=== PATIENT | female | born 1960 | race Native Hawaiian/Other Pacific Islander ===

== ENCOUNTER 2020-04-03 09:49 | Outpatient (CLI) | payer BC, OTHER | END 2020-04-03 21:48 | disposition home or self-care (01) | LOC: LAB 09:49 | DX: R05 Cough (principal); R06.02 Shortness of breath | CPT/HCPCS: 87635; G2023; U0003 ==

== ENCOUNTER 2020-11-12 09:25 | Outpatient (CLI) | payer BC, OTHER | END 2020-11-12 21:58 | disposition home or self-care (01) | LOC: INF 09:25 | PROVIDERS: ATTEND Internal Medicine | DX: Z23 Encounter for immunization (principal) | CPT/HCPCS: 96372 ==

== ENCOUNTER 2020-12-04 09:17 | Outpatient (CLI) | payer BC, OTHER | END 2020-12-04 21:03 | disposition home or self-care (01) | LOC: INF | PROVIDERS: ATTEND Internal Medicine | DX: Z23 Encounter for immunization (principal) | CPT/HCPCS: 96372 ==

== ENCOUNTER 2021-05-01 08:54 | Outpatient (CLI) | payer BC | END 2021-05-01 19:02 | disposition home or self-care (01) | LOC: RESP 08:54 | PROVIDERS: ATTEND Nurse Practitioner Family | DX: J32.9 Chronic sinusitis, unspecified (principal); E66.9 Obesity, unspecified; E78.5 Hyperlipidemia, unspecified; R06.02 Shortness of breath; R00.2 Palpitations; Z13.31 Encounter for screening for depression; F41.1 Generalized anxiety disorder; Z68.35 Body mass index [BMI] 35.0-35.9, adult | CPT/HCPCS: 93005 ==

== ENCOUNTER 2021-07-28 07:39 | Outpatient (CLI) | payer BC | END 2021-07-28 18:54 | disposition home or self-care (01) | LOC: NM 07:39 | PROVIDERS: ATTEND Specialist | DX: R07.89 Other chest pain (principal); R06.02 Shortness of breath; R06.00 Dyspnea, unspecified | CPT/HCPCS: A9500 ==

== ENCOUNTER → 2021-08-03 | Outpatient (CLI) | payer BC | LOC: RESP 08:44 | PROVIDERS: ATTEND Specialist | DX: R00.2 Palpitations (principal) | CPT/HCPCS: 93225 ==

== ENCOUNTER 2021-08-27 11:10 | Outpatient (CLI) | payer BC, OTHER | END 2021-08-27 14:00 | disposition home or self-care (01) | LOC: INF 11:10 | PROVIDERS: ATTEND Internal Medicine | DX: Z23 Encounter for immunization (principal) | CPT/HCPCS: 0004A ==

== ENCOUNTER 2022-02-15 10:43 | Outpatient (CLI) | payer BC | END 2022-02-15 19:49 | disposition home or self-care (01) | LOC: RAD 10:43 | PROVIDERS: ATTEND Nurse Practitioner Family | DX: E78.5 Hyperlipidemia, unspecified (principal); E11.9 Type 2 diabetes mellitus without complications; E66.9 Obesity, unspecified; M25.50 Pain in unspecified joint; I10 Essential (primary) hypertension; M25.561 Pain in right knee ==

== ENCOUNTER 2022-02-19 09:13 | Outpatient (CLI) | payer BC | END 2022-02-19 21:15 | disposition home or self-care (01) | LOC: US 09:13 | PROVIDERS: ATTEND Nurse Practitioner Family | DX: R10.31 Right lower quadrant pain (principal); E78.5 Hyperlipidemia, unspecified; E11.9 Type 2 diabetes mellitus without complications; E66.9 Obesity, unspecified; M25.50 Pain in unspecified joint; I10 Essential (primary) hypertension; M25.561 Pain in right knee ==

== ENCOUNTER 2022-04-20 08:37 | Outpatient (CLI) | payer BC | END 2022-04-20 18:59 | disposition home or self-care (01) | LOC: US 08:37 | PROVIDERS: ATTEND Nurse Practitioner Family | DX: R10.2 Pelvic and perineal pain (principal) ==

== ENCOUNTER 2022-11-03 09:41 | Outpatient (CLI) | payer BC | END 2022-11-03 19:39 | disposition home or self-care (01) | LOC: CT 09:41 | PROVIDERS: ATTEND Nurse Practitioner Family | DX: Z09 Encounter for follow-up examination after completed treatment for conditions other than malignant neoplasm (principal); Z87.891 Personal history of nicotine dependence ==